=== PATIENT | male | born 1985 | race Hispanic/Latino ===

== ENCOUNTER 2023-01-17 07:20 | Day surgery (SDC) | payer OTHER ==
[2023-01-17] MEDS ORDERED: Ringers Lactate 1,000 ML IV ONE (07:40)
[2023-01-17] MEDS ORDERED: OXYMETAZOLINE HCL 0.05% 15ML NAS ONE ×3 (08:15→12:04)
[2023-01-17] MEDS ORDERED: LIDOCAINE 2% MPF 5 ML VIAL ONE (10:11)
[2023-01-17] MEDS ORDERED: FENTANYL CITR 100 MCG/2 ML ONE ×2 (10:11→12:04)
[2023-01-17] MEDS ORDERED: propofoL 200 MG/20 ML VIAL IV ONE (10:11)
[2023-01-17] MEDS ORDERED: ONDANSETRON 4 MG/2 ML VIAL ONE (10:11)
[2023-01-17] MEDS ORDERED: MIDAZOLAM HCL 2 MG/2 ML INJ ONE (10:11)
[2023-01-17] MEDS ORDERED: LIDOCAINE HCL/EPINEPHRINE 20 ML MDV ONE (10:33)
[2023-01-17] MEDS ORDERED: NA CHLORIDE 0.9% 500 ML ONE (10:34)
[2023-01-17] MEDS ORDERED: ROCURONIUM 50 MG/5 ML VIAL IV ONE (10:37)
[2023-01-17] MEDS ORDERED: GLYCOPYRROLATE 0.2 MG/ML SYR ONE (10:37)
[2023-01-17] MEDS ORDERED: NEOSTIGMINE 1 MG/ML -10 ML VIAL ONE (10:39)
[2023-01-17] MEDS ORDERED: dexAMETHasone 4 MG/ML VIAL ONE (10:41)
[2023-01-17] MEDS ORDERED: TRAMADOL HCL 50 MG TAB ONE (13:39)
--- NOTE | 2023-01-17 13:46 | P.OP ---
Date of Service: 01/17/23 Preoperative Diagnosis: [Chronic maxillary sinusitis] [, chronic ethmoid sinusitis] [, chronic frontal sinusitis] [, chronic sphenoid sinusitis] [, nasal polyps] [, nasal obstruction] [, inferior turbinate hypertrophy] Postoperative diagnosis: Same Procedure: Bilateral nasal endoscopy with maxillary antrostomy Surgeon: Shoshana Velez MD Filling Machine Operator: None Indication for procedure: The patient presented to the ENT clinic with severe polyposis completely obstructing the nasal cavity and extending into the nasal vestibule. He was treated with steroids and antibiotics and his posttreatment CT of the sinuses demonstrated complete nearly complete opacification of all of his paranasal sinuses, nasal cavity and nasopharynx. On review of images, there was also some concern for allergic fungal sinusitis based on some hyperdense material within the maxillary, frontal and sphenoid sinuses. The risks, benefits, and alternatives to surgical procedure were discussed with the patient and/or family and they agreed to proceed. The patient was treated with 50 mg daily oral prednisone for 5 days prior to surgery. Surgical findings: Severe polyposis, significant inflammation and bleeding Specimens: Bilateral nasal polyps IV Fluids: Crystalloid, 900ml Implants/Packing: Posisep and XeroGel Estimated Blood Loss: 300 Complications: Truncated surgery due to degree of bleeding Description of procedure in detail: The patient was brought to the operating room. They were placed under general anesthesia via oral endotracheal tube. The head of bed was turned 90 degrees. The nasal cavity was examined with the nasal speculum and headlight with the following findings: Bilateral nasal polyps filling most of the nasal cavity with the head of the inferior turbinates visible. The patient was draped in a standard fashion for nasal surgery. [Based on the surgical plan and preoperative findings, intraoperative CT navigat ion was required. The preoperative CT scan was loaded into the TuneIn device. The registration dongle was applied with adhesive to the patient's forehead. The electromagnetic device was secured to the operating room bed and evaluation to limit interference was confirmed. The registration handpiece was used to perform patient registration in accordance with telecommunication tower technician's instructions including tracing over the course of the external nose and bilateral forehead and cheeks. Accuracy of the registration was confirmed with [id number] matching at the base of the columella, the radix, and the bilateral medial and lateral canthi. Accuracy was felt to be very good.] A 0 degree endoscope was then used to perform a nasal endoscopy with notable findings of severe nasal polyposis obstructing the middle meatus and extending approximately 90% to the nasal floor. Photo documentation was obtained. A straight and 90 degree Blakesley were used to perform a nasal polypectomy in order to allow for visualization of the deeper sinus structures. Multiple fragments of polyps were removed with resulting in an expected degree of bleeding. The nasal cavity was packed with Afrin-soaked pledgets for several minutes. After removal additional polyps were removed from both the right and left nasal cavity. With removal of polyps from the middle meatus on the left side, the inferior turbinate became well visualized. The middle turbinate was also visualized with mild polypoid changes especially on the anterior and inferior edge. Afrin-soaked pledgets were applied to the middle meatus to aid in hemostasis and attention was turned to the right side. Additional polyps were removed from the right side and it was noted that the middle turbinate was completely obscured by polyp. Following removal of polyp and examination, no definitive middle turbinate stucture could be identifed and some thin bone fragments were noted and removed. Afrin-soaked pledgets were applied to aid in hemostasis. Further inspection of the right middle meatus revealed that the middle turbinate had been removed during removal of extensive polyps and the superior insertion point was identified. There is no evidence of injury to the skull base or olfactory cleft in this region but there was moderate residual oozing. Additional Afrin-soaked pledgets were applied to control bleeding. After several minutes, the left pledgets were removed and the maxillary sinus antrostomy was carefully created. A maxillary seeker was used to palpate the lateral nasal wall and a backbiter and 90 degree Blakesley were used to remove small fragments of bone and polypoid tissue. Bleeding was moderate and required significant packing to control. After removal of packing, a curved suction was used to cannulate the left maxillary sinus and the area was thoroughly irrigated. Visualization of the antrostomy was difficult due to the severity of the oozing and bleeding from this area and the middle meatus was repacked with Afrin-soaked pledgets. A similar procedure was performed on the right side but development of a true surgical antrostomy was complicated by the degree of oozing and bleeding. With irrigation of the right maxillary sinus, the irrigant which was returned was suspicious for allergic fungal sinusitis. A polar electrocautery was applied to several areas of the mucosa to aid in hemostasis though care was taken along the insertion point of the right middle turbinate and with attention and goal of avoiding injury to the skull base and olfactory cleft. Brief pause in the procedure was taken to reassess the patient's overall condition. The estimated blood loss as noted on the Griffin suction after subtraction of saline irrigant was approximately 300 mL. In light of the severity of the patient's overall disease and degree of bleeding and surgery duration approaching 2 hours with limited progress due to bleeding, I elected to abort the planned remaining procedures including bilateral total ethmoidectomy with sphenoidotomy and frontal sinusotomy in order to limit the overall degree of blood loss. All the pledgets were removed and the count was confirmed correct. Posisep dissolvable sinus dressings were placed within the bilateral middle meatus with additional packing on of Xerogel on the right side near the olfactory cleft. These packings were soaked with saline in accordance with telecommunication tower technician instructions. The areas were carefully visualized and bleeding appeared to be controlled. At the conclusion of the procedure, all pledget counts were confirmed correct. The patient was returned to care of anesthesia for awakening extubation in the operating room which proceeded without difficulty. The patient was transported to the recovery room and will be discharged home later today in the care of their family. The patient is given written and verbal instructions regarding the importance of saline irrigations and nasal precautions. In consideration of future options, we can consider a staged return to the operating room for more definitive procedure within the next 4 to 8 weeks pending symptoms and patient decision. I will also plan to discuss the option for referral to a rhinology subspecialist due to the severity of the patient's disease
[2023-01-17 13:55] VITALS: O2SAT 98
[2023-01-17 14:10] VITALS: BP 120/85; TEMP 96.8
== END 2023-01-17 14:04 | disposition home or self-care (01) ==
LOC: OR 07:20
PROVIDERS: ATTEND Otolaryngology
PROC: 099Q8ZZ Drainage of Right Maxillary Sinus, Via Natural or Artificial Opening Endoscopic (ICD-10-PCS; 2023-01-17)
PROC: 099R8ZZ Drainage of Left Maxillary Sinus, Via Natural or Artificial Opening Endoscopic (ICD-10-PCS; principal; 2023-01-17 09:45)
DX: J32.0 Chronic maxillary sinusitis (principal); J32.4 Chronic pansinusitis; J32.2 Chronic ethmoidal sinusitis; J32.1 Chronic frontal sinusitis; J33.9 Nasal polyp, unspecified; J34.89 Other specified disorders of nose and nasal sinuses; J34.3 Hypertrophy of nasal turbinates
CPT/HCPCS: 88304; 88311; 31256; J2704; J1100; J2710; J2001; J2250; J3010 ×2; J2405; J7120; J7040